=== PATIENT | female | born 1950 | race Caucasian/White ===

== ENCOUNTER 2021-10-26 11:37 | Emergency (ER) | payer MEDICARE, BC ==
[2021-10-26 12:00] VITALS: BP 157/76; PULSE 58
[2021-10-26] MEDS ORDERED: Sodium Chloride 0.9% 10 ML Syringe FLUSH PRN (12:01)
[2021-10-26] MEDS ORDERED: Aspirin 81 MG Tab.Chew PO ONE (12:01)
--- NOTE | 2021-10-26 12:25 | EDM.PDOC ---
ED HPI GENERAL MEDICAL PROBLEM - General Chief Complaint: Cardiovascular Problem Stated Complaint: CHEST TIGHTNESS TINGLING IN ARMS Time Seen by Provider: 10/26/21 12:16 Source of Information: Reports: Patient, RN Notes Reviewed History Limitations: Reports: No Limitations - History of Present Illness INITIAL COMMENTS - FREE TEXT/NARRATIVE: Patient is a 70-year-old female who presents to the ER for her chest discomfort. The patient states that she has been having an issue with a chronic cough for about 6 months now with associated lethargy or fatigue. States that sometimes she coughs so hard that she makes herself nauseated and has to vomit. She states that this did worsen this morning at around 9 AM. She had some chest pressure associated with this, with some numbness/tingling that radiated down her left arm. She did not take any sort of medications at home for this. She did try to go to the walk-in clinic but they sent her here for evaluation due to the report of chest pain. Patient states that she does have thyroid issues but at her last lab check 2 months ago everything was within normal limits, and she was thinking that it very well could have been a thyroid issue causing some of her symptoms again but her level was within normal limits during the time where she developed the symptoms. Chest discomfort at the time of exam has lessened a little bit. She states that she is feeling a little bit better now. No history of GERD or reflux, but she states that she had an upper endoscopy and she had a small hiatal hernia. Primary care provider is Dr. Arlene Cary. Patient's had no associated fevers or chills, shortness of breath or any sort of diarrhea like issues. - Related Data Allergies Allergy/AdvReac Type Severity Reaction Status Date / Time No Known Allergies Allergy Verified 10/26/21 12:00 Home Meds: Home Meds Levothyroxine Sodium [Synthroid] 1 tab PO DAILY 07/05/15 [History] Cyanocobalamin (Vitamin B12) [Vitamin B12] 2 tab PO DAILY 07/06/15 [History] Vit C/E/Zn/Coppr/Lutein/Zeaxan [Preservision Areds 2 Softgel] 1 tab PO DAILY 07/06/15 [History] Sertraline [Zoloft] 25 mg PO DAILY 10/26/21 [History] Past Medical History HEENT History: Reports: Cataract Psychiatric History: Reports: None - Past Surgical History GI Surgical History: Reports: Cholecystectomy Female Surgical History: Reports: Hysterectomy Social & Family History - Tobacco Use Tobacco Use Status *Q: Never Tobacco User ED ROS GENERAL - Review of Systems Review Of Systems: Comprehensive ROS is negative, except as noted in HPI. ED EXAM, GENERAL - Physical Exam Exam: See Below Exam Limited By: No Limitations General Appearance: Alert, WD/WN, No Apparent Distress Respiratory/Chest: No Respiratory Distress, Lungs Clear, Normal Breath Sounds, No Accessory Muscle Use, Chest Non-Tender Cardiovascular: Normal Peripheral Pulses, Regular Rate, Rhythm, No Edema Peripheral Pulses: 2+: Radial (L), Radial (R) GI/Abdominal: Normal Bowel Sounds, Soft, Non-Tender, No Distention, No Mass Extremities: Normal Inspection, Normal Capillary Refill Neurological: Alert, Oriented, Normal Cognition, No Motor/Sensory Deficits Psychiatric: Normal Affect, Normal Mood Skin Exam: Warm, Dry, Intact, Normal Color, No Rash #1 Interpretation EKG Date: 10/26/21 Time: 12:00 Rhythm: NSR Rate (Beats/Min): 52 [place]: Normal P-Wave: Present QRS: Normal ST-T: Normal QT: Normal MT/PQ Interval: 114, borderline short EKG Interpretation Comments: No obvious ischemia or acute ST changes noted, reviewed by myself and Dr. Iyer. Course - Vital Signs Last Recorded V/S: Last Vital Signs Temp 98.5 F 10/26/21 11:58 Pulse 58 L 10/26/21 11:58 Resp 18 10/26/21 11:58 BP 157/76 H 10/26/21 11:58 Pulse Ox 100 10/26/21 11:58 - Orders/Labs/Meds Orders: Active Orders 24 hr Category Date Time Status Cardiac Monitoring [RC] . DIRECTED Care 10/26/21 12:02 Active Oxygen Therapy [RC] ASDIRECTED Care 10/26/21 12:02 Active Peripheral IV Care [RC] . DIRECTED Care 10/26/21 12:02 Active Sodium Chloride 0.9% [Saline Flush] Med 10/26/21 12:01 Active 10 ml FLUSH ASDIRECTED PRN Peripheral IV Insertion Adult [OM.PC] Stat Oth 10/26/21 12:02 Ordered Medication Orders Sodium Chloride (Sodium Chloride 0.9% 10 Ml Syringe) 10 ml FLUSH ASDIRECTED PRN PRN Reason: Keep Vein Open Last Admin: 10/26/21 12:13 Dose: 10 ml Documented by: LEIDY Labs: Laboratory Tests 10/26/21 10/26/21 10/26/21 Range/Units 11:58 11:58 11:58 WBC 6.09 (3.98-10.04) K/mm3 RBC 5.04 (3.98-5.22) M/mm3 Hgb 14.0 (11.2-15.7) gm/dl Hct 44.6 (34.1-44.9) % MCV 88.5 (79.4-94.8) fl MCH 27.8 (25.6-32.2) pg MCHC 31.4 L (32.2-35.5) g/dl RDW Std Deviation 45.4 (36.4-46.3) fL Plt Count 305 (182-369) K/mm3 MPV 10.3 (9.4-12.3) fl Neut % (Auto) 49.7 (34.0-71.1) % Lymph % (Auto) 38.9 (19.3-51.7) % [place] % (Auto) 8.7 (4.7-12.5) % Eos % (Auto) 2.3 (0.7-5.8) Baso % (Auto) 0.2 (0.1-1.2) % Neut # (Auto) 3.03 (1.56-6.13) K/mm3 Lymph # (Auto) 2.37 (1.18-3.74) K/mm3 [place] # (Auto) 0.53 H (0.24-0.36) K/mm3 Eos # (Auto) 0.14 (0.04-0.36) K/mm3 Baso # (Auto) 0.01 (0.01-0.08) K/mm3 PT 10.2 (9.7-12.0) SECONDS INR < 0.93 D-Dimer, Quantitative 0.40 (0.19-0.50) mg/L Sodium 144 (136-145) mEq/L Potassium 4.2 (3.5-5.1) mEq/L Chloride 106 (98-107) mEq/L Carbon Dioxide 29 (21-32) mEq/L Anion Gap 13.2 (5-15) BUN 15 (7-18) mg/dL Creatinine 0.9 (0.55-1.02) mg/dL Est Cr Clr Drug Dosing 40.58 mL/min Estimated GFR (MDRD) > 60 (>60) mL/min BUN/Creatinine Ratio 16.7 (14-18) Glucose 99 (70-99) mg/dL Calcium 9.5 (8.5-10.1) mg/dL Magnesium 2.4 (1.8-2.4) mg/dL Total Bilirubin 0.4 (0.2-1.0) mg/dL AST 15 (15-37) U/L ALT 24 (14-59) U/L Alkaline Phosphatase 62 (46-116) U/L Troponin I < 0.017 (0.00-0.056) ng/mL NT-Pro-B Natriuret Pep (0-125) pg/mL Total Protein 7.1 (6.4-8.2) g/dl Albumin 3.7 (3.4-5.0) g/dl Globulin 3.4 gm/dL Albumin/Globulin Ratio 1.1 (1-2) TSH 3rd Generation (0.358-3.74) uIU/mL 10/26/21 10/26/21 Range/Units 12:19 12:19 WBC (3.98-10.04) K/mm3 RBC (3.98-5.22) M/mm3 Hgb (11.2-15.7) gm/dl Hct (34.1-44.9) % MCV (79.4-94.8) fl MCH (25.6-32.2) pg MCHC (32.2-35.5) g/dl RDW Std Deviation (36.4-46.3) fL Plt Count (182-369) K/mm3 MPV (9.4-12.3) fl Neut % (Auto) (34.0-71.1) % Lymph % (Auto) (19.3-51.7) % [place] % (Auto) (4.7-12.5) % Eos % (Auto) (0.7-5.8) Baso % (Auto) (0.1-1.2) % Neut # (Auto) (1.56-6.13) K/mm3 Lymph # (Auto) (1.18-3.74) K/mm3 [place] # (Auto) (0.24-0.36) K/mm3 Eos # (Auto) (0.04-0.36) K/mm3 Baso # (Auto) (0.01-0.08) K/mm3 PT (9.7-12.0) SECONDS INR D-Dimer, Quantitative (0.19-0.50) mg/L Sodium (136-145) mEq/L Potassium (3.5-5.1) mEq/L Chloride (98-107) mEq/L Carbon Dioxide (21-32) mEq/L Anion Gap (5-15) BUN (7-18) mg/dL Creatinine (0.55-1.02) mg/dL Est Cr Clr Drug Dosing mL/min Estimated GFR (MDRD) (>60) mL/min BUN/Creatinine Ratio (14-18) Glucose (70-99) mg/dL Calcium (8.5-10.1) mg/dL Magnesium (1.8-2.4) mg/dL Total Bilirubin (0.2-1.0) mg/dL AST (15-37) U/L ALT (14-59) U/L Alkaline Phosphatase (46-116) U/L Troponin I (0.00-0.056) ng/mL NT-Pro-B Natriuret Pep 80 (0-125) pg/mL Total Protein (6.4-8.2) g/dl Albumin (3.4-5.0) g/dl Globulin gm/dL Albumin/Globulin Ratio (1-2) TSH 3rd Generation 1.470 (0.358-3.74) uIU/mL Meds: Medications Generic Name Dose Route Start Last Admin Trade Name Freq PRN Reason Stop Dose Admin Sodium Chloride 10 ml 10/26/21 12:01 10/26/21 12:13 Sodium Chloride 0.9% 10 Ml Syringe FLUSH 10 ml ASDIRECTED PRN Administration Keep Vein Open Discontinued Medications Generic Name Dose Route Start Last Admin Trade Name Freq PRN Reason Stop Dose Admin Aspirin 324 mg 10/26/21 12:01 10/26/21 12:10 Aspirin 81 Mg Tab.Chew PO 10/26/21 12:02 324 mg ONETIME ONE Administration - Re-Assessments/Exams Free Text/Narrative Re-Assessment/Exam: 10/26/21 12:51 Patient presents to the ER for the evaluation of her chest pressure. Labs and EKG with chest x-ray were ordered at the time of triage. Still awaiting results of these however the EKG shows a normal sinus rhythm with sinus bradycardia but no other acute ST changes. 10/26/21 14:15 Labs are all unremarkable. Chest x-ray was without any acute findings. We will go ahead and discharge patient home with general recommendations have her trial some sinus rinses also omeprazole [id number] to see if this helps relieve some of the symptoms and have her follow-up with her regular care provider. Patient verbalized understanding of this plan. Departure - Departure Time of Disposition: 14:16 Disposition: Home, Self-Care 01 Condition: Good Clinical Impression: Atypical chest pain Instructions: Nonspecific Chest Pain, Adult, [id number] Referrals: Beena Cary MD [Primary Care Provider] - Forms: ED Department Discharge Additional Instructions: You were evaluated in the ER today for your chest pain. Your EKG, chest x-ray, and laboratory evaluation are all unremarkable. The chest pain is thought likely due to musculoskeletal etiology. Regarding your chronic cough that has been going on for the last few months I would recommend that you try some nasal sinus rinses to see if this helps relieve some of your symptoms. You may obtain any sort of sinus rinse [id number] at a pharmacy or other retail place like [facility] [employer]. Please use per manufacture instructions on the back of the box. Also would recommend the use of an [id number] acid suppressant in the stomach. A medication like Prilosec (omeprazole) would be sufficient to see if this can help relieve some issues to what was suspected as reflux at today's visit. This medication may take up to 72 hours to start providing benefit. You may take a medication like Pepcid, or Maalox or Tums over the next few days to bridge the gap. Please follow-up with your regular provider for ongoing management of your health. Please return to the ER at any time if symptoms change or worsen. Thank you for allowing and choosing us to be involved in your healthcare needs. Sepsis Event Note (ED) - Evaluation Sepsis Screening Result: No Definite Risk - Focused Exam Vital Signs: Vital Signs Temp Pulse Resp BP Pulse Ox 10/26/21 11:58 98.5 F 58 L 18 157/76 H 100 - My Orders Last 24 Hours: My Active Orders 10/26/21 12:01 Sodium Chloride 0.9% [Saline Flush] 10 ml FLUSH ASDIRECTED PRN 10/26/21 12:02 Cardiac Monitoring [RC] . DIRECTED Oxygen Therapy [RC] ASDIRECTED Peripheral IV Care [RC] . DIRECTED Peripheral IV Insertion Adult [OM.PC] Stat - Assessment/Plan Last 24 Hours: My Active Orders 10/26/21 12:01 Sodium Chloride 0.9% [Saline Flush] 10 ml FLUSH ASDIRECTED PRN 10/26/21 12:02 Cardiac Monitoring [RC] . DIRECTED Oxygen Therapy [RC] ASDIRECTED Peripheral IV Care [RC] . DIRECTED Peripheral IV Insertion Adult [OM.PC] Stat
--- NOTE | 2021-10-26 13:35 | CR ---
Chest: Portable view of the chest was obtained. Comparison: No prior chest imaging is available. Heart size and mediastinum are normal. Lungs are clear with no acute parenchymal change. Bony structures show nothing acute. Impression: 1. Nothing acute is seen on portable chest x-ray. Diagnostic code #1
== END 2021-10-26 14:30 | disposition home or self-care (01) ==
LOC: JD.ED 11:37 → SUPCPDRO 11:37 → JD.ED 14:30
DX: R07.89 Other chest pain (principal); Z79.899 Other long term (current) drug therapy
CPT/HCPCS: 36415; 71045; 80053; 83735; 83880; 84443; 84484; 85025; 85379; 85610; 93005; 99285; A9270